=== PATIENT | male | born 1970 | race Caucasian/White ===

== ENCOUNTER 2019-03-15 18:06 | Emergency (ER) | payer MEDICAID ==
[~2019-03-15] VITALS: Ht 185.4 cm; Wt 136.1 kg
[2019-03-15] MEDS ORDERED: ALBU0.63 NEB (19:22)
[2019-03-15] MEDS ORDERED: ATORVASTATIN CA80 MG PO (19:22)
[2019-03-15] MEDS ORDERED: CARV25TA2 PO (19:22)
[2019-03-15] MEDS ORDERED: GABA300C18 PO (19:23)
[2019-03-15] MEDS ORDERED: DULO30CA2 PO (19:23)
[2019-03-15] MEDS ORDERED: PRAZ2CAP2 PO (19:24)
[2019-03-15] MEDS ORDERED: PRAZ5CAP2 PO (19:24)
[2019-03-15] MEDS ORDERED: LIDO30CR TP (19:24)
[2019-03-15] MEDS ORDERED: HYDR50CA2 PO (19:24)
[2019-03-15] MEDS ORDERED: ALBU2.5V8 INH (19:25)
[2019-03-15] MEDS ORDERED: BUDE10.2 IH (19:26)
[2019-03-15 19:35] LABS: BASO # 0.1 x10^3/uL (0.0-0.2); BASO % 1 % (0-3); EOS # 0.4 x10^3/uL (0.0-0.7); EOS % 4 % (0-3); HEMATOCRIT 56.3 % (39.0-53.0); HEMOGLOBIN 19.7 g/dL (13.0-17.5); LYMPH # 2.5 x10^3/uL (1.0-4.8); LYMPH % 24 % (24-48); MEAN CORPUSCULAR HEMOGLOBIN 32 pg (25-35); MEAN CORPUSCULAR HGB CONC 35 g/dL (31-37); MEAN CORPUSCULAR VOLUME 92 fL (79-100); MONO # 0.5 x10^3/uL (0.0-1.1); MONO % 5 % (0-9); NEUT # 6.8 x10^3/uL (1.8-7.7); NEUT % 66 % (31-73); PLATELET COUNT 244 x10^3/uL (140-400); RED BLOOD COUNT 6.12 x10^6/uL (4.30-5.70); RED CELL DISTRIBUTION WIDTH 13.4 % (11.5-14.5); WHITE BLOOD COUNT 10.3 x10^3/uL (4.0-11.0)
[2019-03-15 19:38] LABS: CALCIUM 9.4 mg/dL (8.5-10.1); CREATININE 1.1 mg/dL (0.7-1.3); GFR 71.4; POTASSIUM 3.5 mmol/L (3.5-5.1)
[2019-03-15 19:44] LABS: ALBUMIN 3.8 g/dL (3.4-5.0); MAGNESIUM 2.1 mg/dL (1.8-2.4); TOTAL BILIRUBIN 0.7 mg/dL (0.2-1.0); TOTAL PROTEIN 7.7 g/dL (6.4-8.2)
[2019-03-15 19:47] VITALS: BP 155/75
[2019-03-15] MEDS ORDERED: IPRATRPIUM/ALBUTEROL 0.5/2.5MG 3 ML NEBU. NEB ONE (20:00)
[2019-03-15] MEDS ORDERED: DEXAMETHASONE SOD PHOS 20 MG/5 ML VIAL. IV ONE (20:00)
--- NOTE | 2019-03-15 20:16 | PHYS DOC ---
Past Medical History Past Medical History: Anxiety, COPD, Depression, Hypertension, Other Additional Past Medical Histor: sleep apnea,ptsd, Past Surgical History: No Surgical History Smoking: Cigarettes, Less than 1pk/day Alcohol Use: None Drug Use: None Adult General Chief Complaint Chief Complaint: SHORTNESS OF BREATH HPI HPI Patient is a 48yo M w/ PMH significant for COPD and HTN presents w/ shortness of breath of 3 days duration that has progressively worsened without improvement after using at home medications (Symbicort, albuterol, and nebulizer as prescribed). Productive cough of white sputum, no hemoptysis. Denies CP. Reports KENT, fever, diaphoresis, sinus pressure. Reports girlfriend was diagnosed w/ pneumonia on Thursday; no other sick contacts. Review of Systems Review of Systems Constitutional: Reports fever, diaphoresis. Denies chills. Eyes: Denies redness, eye pain, or blurry vision HENT: Reports mild nasal congestion w/o rhinorrhea. Denies sore throat. Respiratory: Reports shortness of breath w/ productive cough of white sputum Cardiovascular: Denies chest pain or palpitations GI: Reports nausea w/ 1x vomiting w/o hematemesis. Denies abdominal pain, diarrhea, constipation, or hematochezia. : Denies dysuria or hematuria Musculoskeletal: Reports LBP secondary to L5-S1 DDD. Denies joint pain. Integument: Denies rash or skin lesions Neurologic: Reports KENT and dizziness. Denies focal weakness or sensory changes Complete systems were reviewed and found to be within normal limits, except as documented in this note. Current Medications Current Medications Current Medications Medications (Trade) Dose Ordered Sig/Meggan Start Time Stop Time Status Last Admin Dose Admin Acetaminophen (Tylenol) 500 mg 1X ONCE 03/15/19 21:00 03/15/19 21:00 DC 03/15/19 20:33 500 MG Albuterol/ Ipratropium (Duoneb) 3 ml 1X ONCE 03/15/19 20:00 03/15/19 20:01 DC Dexamethasone Sodium Phosphate (Decadron) 10 mg 1X ONCE 03/15/19 20:00 03/15/19 20:01 DC 03/15/19 19:30 10 MG Allergies Allergies Allergies Coded Allergies Type Severity Reaction Last Updated Verified aspirin Allergy Unknown "stomach in knots" 03/15/19 Yes Physical Exam Physical Exam Constitutional: conversational w/o staccato speech. Overweight. Well developed, well nourished, mild acute distress, non-toxic appearance HENT: Normocephalic, atraumatic, oropharynx moist, no cervical or supraclavicular LAD. Eyes: PERRL, EOMI, conjunctiva normal, no discharge Neck: Normal range of motion, no tenderness, supple Cardiovascular: Heart RRR w/o gallops, rubs, or murmurs. UE radial pulses intact 2/4 b/l. Lungs & Thorax: CTAB w/ wheezing throughout Abdomen: soft, non-tender, non-distended, no ecchymosis Skin: Warm, dry, no erythema, no rash Back: LBP tenderness, no ecchymosis Extremities: No tenderness, ROM intact, no edema Neurologic: Alert and oriented X 3, normal motor function, normal sensory function, no focal deficits noted Psychologic: Affect normal, judgement normal, mood normal Current Patient Data Vital Signs Vital Signs Date Time Temp Pulse Resp B/P (MAP) Pulse Ox O2 Delivery O2 Flow Rate FiO2 03/15/19 19:24 98 Room Air 03/15/19 19:16 98.2 76 18 176/81 (112) 98.2 Lab Values Laboratory Tests Test 03/15/19 19:20 White Blood Count 10.3 x10^3/uL (4.0-11.0) Red Blood Count 6.12 x10^6/uL (4.30-5.70) H Hemoglobin 19.7 g/dL (13.0-17.5) H Hematocrit 56.3 % (39.0-53.0) H Mean Corpuscular Volume 92 fL (79-100) Mean Corpuscular Hemoglobin 32 pg (25-35) Mean Corpuscular Hemoglobin Concent 35 g/dL (31-37) Red Cell Distribution Width 13.4 % (11.5-14.5) Platelet Count 244 x10^3/uL (140-400) Neutrophils (%) (Auto) 66 % (31-73) Lymphocytes (%) (Auto) 24 % (24-48) Monocytes (%) (Auto) 5 % (0-9) Eosinophils (%) (Auto) 4 % (0-3) H Basophils (%) (Auto) 1 % (0-3) Neutrophils # (Auto) 6.8 x10^3/uL (1.8-7.7) Lymphocytes # (Auto) 2.5 x10^3/uL (1.0-4.8) Monocytes # (Auto) 0.5 x10^3/uL (0.0-1.1) Eosinophils # (Auto) 0.4 x10^3/uL (0.0-0.7) Basophils # (Auto) 0.1 x10^3/uL (0.0-0.2) Sodium Level 144 mmol/L (136-145) Potassium Level 3.5 mmol/L (3.5-5.1) Chloride Level 106 mmol/L (98-107) Carbon Dioxide Level 28 mmol/L (21-32) Anion Gap 10 (6-14) Blood Urea Nitrogen 17 mg/dL (8-26) Creatinine 1.1 mg/dL (0.7-1.3) Estimated GFR (Cockcroft-Gault) 71.4 BUN/Creatinine Ratio 15 (6-20) Glucose Level 237 mg/dL (70-99) H Calcium Level 9.4 mg/dL (8.5-10.1) Magnesium Level 2.1 mg/dL (1.8-2.4) Total Bilirubin 0.7 mg/dL (0.2-1.0) Aspartate Amino Transferase (AST) 19 U/L (15-37) Alanine Aminotransferase (ALT) 48 U/L (16-63) Alkaline Phosphatase 94 U/L (46-116) Creatine Kinase 154 U/L (39-308) Creatine Kinase MB (Mass) 2.1 ng/mL (0.0-3.6) Creatine Kinase MB Relative Index 1.4 % (0-4) Troponin I Quantitative < 0.017 ng/mL (0.000-0.055) [id number]-[id number]-Type Natriuretic Peptide 24 pg/mL (0-124) Total Protein 7.7 g/dL (6.4-8.2) Albumin 3.8 g/dL (3.4-5.0) Albumin/Globulin Ratio 1.0 (1.0-1.7) Laboratory Tests 03/15/19 19:20 Laboratory Tests 03/15/19 19:20 EKG EKG EKG obtained @ 19:26. Read @ 19:30. Sinus rhythm w/ no ST-elevation changes visualized.[] Radiology/Procedures Radiology/Procedures Preliminary review by ED physician. Mild RLL atelectasis, no other acute process noted. No pneumonia visualized.[] Course & Med Decision Making Course & Med Decision Making Pertinent Labs and Imaging studies reviewed. (See chart for details) Patient presented with shortness of breath. Duoneb breathing treatment provided and patient noted improved breathing. Wheezing heard throughout pre- and post- treatment. CXR revealed no pneumonia. Patient stable for discharge with outpatient follow-up with PCP. Discussed findings and plan with patient and family, who acknowledge understanding and agreement. [] Dragon Disclaimer Dragon Disclaimer This electronic medical record was generated, in whole or in part, using a voice recognition dictation system. Departure Departure Impression: Primary Impression: Bronchitis Disposition: HOME, SELF-CARE Condition: IMPROVED Referrals: UNKNOWN PCP NAME (PCP) Patient Instructions: Acute Bronchitis, [id number] Scripts Prednisone (PREDNISONE) 20 Mg Tablet 2 TAB PO DAILY, #8 TAB Start this medication tomorrow, Thursday, 03/16. Prov: JOSIAH IVY DO 03/15/19 JOSIAH IVY DO Mar 15, 2019 20:16
[2019-03-15] MEDS ORDERED: PRED20TA PO (20:36)
--- NOTE | 2019-03-15 20:47 | RAD ---
Exam: Chest 2 views INDICATION: Wheezing TECHNIQUE: Frontal and lateral views of the chest Comparisons: None FINDINGS: The cardiomediastinal silhouette and pulmonary vessels are within normal limits. Patchy airspace disease in the left lower lung. No pleural effusion. IMPRESSION: Patchy airspace disease in the left lower lung may represent developing consolidation versus atelectasis. Electronically signed by: Clive Thomas MD (03/15/2019 8:44 PM) [facility]
[2019-03-15] MEDS ORDERED: ACETAMINOPHEN 500 MG TABLET PO ONE (21:00)
--- NOTE | 2019-03-16 07:05 | EKG ---
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
== END 2019-03-15 20:59 | disposition home or self-care (01) ==
LOC: ER 18:06
DX: J44.9 Chronic obstructive pulmonary disease, unspecified (principal); J98.11 Atelectasis; I10 Essential (primary) hypertension; F43.10 Post-traumatic stress disorder, unspecified; F17.210 Nicotine dependence, cigarettes, uncomplicated; Z88.6 Allergy status to analgesic agent
CPT/HCPCS: 36415; 71046; 80053; 82553; 83735; 83880; 84484; 85025; 93005; 94640; 96374; 99285; J1100; 99284-25

== ENCOUNTER 2019-04-16 01:17 | Emergency (ER) | payer MEDICAID ==
[~2019-04-16] VITALS: Ht 185.4 cm; Wt 136.1 kg
[~2019-04-16 01:17] MED LIST: ALBU0.63 NEB; ALBU2.5V8 INH; ATORVASTATIN CA80 MG PO; BUDE10.2 IH; CARV25TA2 PO; DULO30CA2 PO; GABA300C18 PO; HYDR50CA2 PO; LIDO30CR TP; PRAZ2CAP2 PO; PRAZ5CAP2 PO; PRED20TA PO
[2019-04-16 01:32] VITALS: BP 107/80
[2019-04-16] MEDS ORDERED: METH4TAB2 PO (02:01)
[2019-04-16] MEDS ORDERED: MUPI22OI2 TP (02:01)
--- NOTE | 2019-04-16 02:01 | PHYS DOC ---
Past Medical History Past Medical History: Anxiety, COPD, Depression, Hypertension, Other Additional Past Medical Histor: sleep apnea,ptsd, Past Surgical History: No Surgical History Alcohol Use: None Drug Use: None Adult General Chief Complaint Chief Complaint: ITCHING HPI HPI Patient is a 48-year-old male who presents with complaint of diffuse itching and rash. He states that the itching and rash is worse around his zhou. He denies any fever, chest pain or shortness breath. Patient states that symptoms have been present for the last few days. He states that he thinks that it may be caused by changing soaps.[] Review of Systems Review of Systems Constitutional: Denies fever or chills [] Respiratory: Denies cough or shortness of breath [] Cardiovascular: No additional information not addressed in HPI [] Integument: Positive rash and pruritus[] Allergies Allergies Allergies Coded Allergies Type Severity Reaction Last Updated Verified aspirin Allergy Unknown "stomach in knots" 03/15/19 Yes Physical Exam Physical Exam Constitutional: Well developed, well nourished, no acute distress, non-toxic appearance. [] Neck: Normal range of motion, no tenderness, supple, no stridor. [] Cardiovascular:Heart rate regular rhythm, no murmur [] Lungs & Thorax: Bilateral breath sounds clear to auscultation [] Skin: There is a diffuse erythematous rash with some excoriations, especially around the chin where zhou is present. [] Current Patient Data Vital Signs Vital Signs Date Time Temp Pulse Resp B/P (MAP) Pulse Ox O2 Delivery O2 Flow Rate FiO2 04/16/19 01:32 97.9 71 18 107/80 (89) 96 Room Air 97.9 EKG EKG [] Radiology/Procedures Radiology/Procedures [] Course & Med Decision Making Course & Med Decision Making Pertinent Labs and Imaging studies reviewed. (See chart for details) [] Dragon Disclaimer Dragon Disclaimer This electronic medical record was generated, in whole or in part, using a voice recognition dictation system. Departure Departure Impression: Primary Impression: Contact dermatitis Disposition: 01 HOME, SELF-CARE Condition: STABLE Referrals: UNKNOWN PCP NAME (PCP) Patient Instructions: Contact Dermatitis, Rash Scripts Mupirocin (MUPIROCIN OINTMENT) 22 Gm Oint...g. 1 LELIA TP BID for WOUND CARE, #1 TUBE Prov: ALMA DELIA LERMA Jr. DO 04/16/19 Methylprednisolone (MEDROL) 4 Mg Tab.ds.pk 1 PKG PO UD, #1 PKG Prov: ALMA DELIA LERMA Jr. DO 04/16/19 Problem Qualifiers Primary Impression: Contact dermatitis Contact dermatitis type: allergic Contact dermatitis trigger: unspecified trigger Qualified Codes: L23.9 - Allergic contact dermatitis, unspecified cause ALMA DELIA LERMA Jr. DO Apr 16, 2019 02:01
[2019-04-16] MEDS ORDERED: predniSONE 10 MG TABLET PO ONE (02:30)
== END 2019-04-16 02:15 | disposition home or self-care (01) ==
LOC: ER 01:17
DX: L23.9 Allergic contact dermatitis, unspecified cause (principal); I10 Essential (primary) hypertension; J44.9 Chronic obstructive pulmonary disease, unspecified; Z88.6 Allergy status to analgesic agent
CPT/HCPCS: 99283; J7512

== ENCOUNTER 2020-06-13 19:06 | Emergency (ER) | payer SELFPAY ==
[~2020-06-13] VITALS: Ht 185.4 cm; Wt 145.0 kg
[~2020-06-13 19:06] MED LIST changes: +METH4TAB2 PO; +MUPI22OI2 TP
[2020-06-13] MEDS ORDERED: AZIT250T PO (20:30)
[2020-06-13] MEDS ORDERED: ACETAMINOPHEN 325 MG TABLET. PO ONE (20:30)
[2020-06-13] MEDS ORDERED: DEXAMETHASONE SOD PHOS 4 MG/ML VIAL PO ONE (20:30)
[2020-06-13] MEDS ORDERED: TRAM-48 PO (20:30)
--- NOTE | 2020-06-13 20:30 | PHYS DOC ---
Past Medical History Past Medical History: Anxiety, COPD, Depression, Hypertension, Other Additional Past Medical Histor: sleep apnea,ptsd, Past Surgical History: No Surgical History Smoking Status: Current Every Day Smoker Alcohol Use: None Drug Use: None General Adult EDM: Chief Complaint: HEADACHE HPI: HPI: 49-year-old male presents with a chief complaint of migraine headache associated with sore throat. Patient states migraine headache started yesterday. Is located in the frontal sinus region. Patient states he sleeps with a CPAP and this morning he woke up with a sore throat. Patient denies any fevers or chills. He denies any cough or shortness of breath. On exam patient is nontoxic appearing. His vital signs are stable. Oxygen saturation 100% on room air. Patient states he is not concerned about having Covid. Patient declines Covid testing. Plan to treat patient headache with Tylenol. Will treat patient with Decadron and prescribed Zithromax for sinus upper respiratory pharyngitis symptoms. Review of Systems: Review of Systems: Constitutional: Denies fever or chills. [] Eyes: Denies change in visual acuity. [] HENT: Positive nasal congestion or sore throat. [] Respiratory: Denies cough or shortness of breath. [] Cardiovascular: Denies chest pain or edema. [] GI: Denies abdominal pain, nausea, vomiting, bloody stools or diarrhea. [] : Denies dysuria. [] Musculoskeletal: Denies back pain or joint pain. [] Integument: Denies rash. [] Neurologic: Positive headache, no focal weakness or sensory changes. [] Endocrine: Denies polyuria or polydipsia. [] Lymphatic: Denies swollen glands. [] Psychiatric: Denies depression or anxiety. [] Heart Score: Risk Factors: Risk Factors: DM, Current or recent (<one month) smoker, HTN, HLP, family history of CAD, obesity. Risk Scores: Score 0 - 3: 2.5% MACE over next 6 weeks - Discharge Home Score 4 - 6: 20.3% MACE over next 6 weeks - Admit for Clinical Observation Score 7 - 10: 72.7% MACE over next 6 weeks - Early Invasive Strategies Allergies: Allergies: Allergies Coded Allergies Type Severity Reaction Last Updated Verified aspirin Allergy Unknown "stomach in knots" 03/15/19 Yes Physical Exam: PE: Constitutional: Well developed, well nourished, no acute distress, non-toxic appearance. [] HENT: Normocephalic, atraumatic, bilateral external ears normal, oropharynx moist, no oral exudates, nose normal. [] Eyes: PERRLA, EOMI, conjunctiva normal, no discharge. [] Neck: Normal range of motion, no tenderness, supple, no stridor. [] Cardiovascular:Heart rate regular rhythm, no murmur [] Lungs & Thorax: Bilateral breath sounds clear to auscultation [] Abdomen: Bowel sounds normal, soft, no tenderness, no masses, no pulsatile masses. [] Skin: Warm, dry, no erythema, no rash. [] Back: No tenderness, no CVA tenderness. [] Extremities: No tenderness, no cyanosis, no clubbing, ROM intact, no edema. [] Neurologic: Alert and oriented X 3, normal motor function, normal sensory function, no focal deficits noted. [] Psychologic: Affect normal, judgement normal, mood normal. [] Current Patient Data: Vital Signs: Vital Signs Date Time Temp Pulse Resp B/P (MAP) Pulse Ox O2 Delivery O2 Flow Rate FiO2 06/13/20 19:17 98.7 70 18 180/86 (117) 98 Room Air 98.7 EKG: EKG: [] Radiology/Procedures: Radiology/Procedures: [] Course & Med Decision Making: Course & Med Decision Making Pertinent Labs and Imaging studies reviewed. (See chart for details) [] Dragon Disclaimer: Dragon Disclaimer: This electronic medical record was generated, in whole or in part, using a voice recognition dictation system. Departure Departure Impression: Primary Impression: Sinusitis Additional Impressions: Pharyngitis Headache Disposition: HOME SELF CARE/HOMELESS Condition: STABLE Referrals: NO PCP (PCP) Patient Instructions: Sinusitis, Viral and Bacterial Pharyngitis Scripts Tramadol Hcl (ULTRAM) 50 Mg Tablet 50 MG PO Q6HRS PRN for PAIN for 10 Days, #40 TAB 0 Refills Prov: JESSE LEBRON DO 06/13/20 Azithromycin (ZITHROMAX) 250 Mg Tablet 1 PKG PO UD, #6 TAB Prov: JESSE LEBRON DO 06/13/20 JESSE LEBRON DO Jun 13, 2020 20:30
[2020-06-13 20:34] VITALS: BP 148/86
== END 2020-06-13 20:37 | disposition home or self-care (01) ==
LOC: ER 19:06
DX: J32.9 Chronic sinusitis, unspecified (principal); J02.9 Acute pharyngitis, unspecified; G43.909 Migraine, unspecified, not intractable, without status migrainosus; J44.9 Chronic obstructive pulmonary disease, unspecified; I10 Essential (primary) hypertension; F32.9 Major depressive disorder, single episode, unspecified; F41.9 Anxiety disorder, unspecified; F43.10 Post-traumatic stress disorder, unspecified; F17.200 Nicotine dependence, unspecified, uncomplicated; Z88.6 Allergy status to analgesic agent
CPT/HCPCS: 99283; J1100

== ENCOUNTER 2021-08-22 21:35 | Emergency (ER) | payer SELFPAY ==
[~2021-08-22] VITALS: Ht 190.5 cm; Wt 143.2 kg
[~2021-08-22 21:35] MED LIST changes: +AZIT250T PO; -LIDO30CR TP; +LIDO30CR2 TP; +TRAM-48 PO
[2021-08-22 22:44] LABS: BASO # 0.2 x10^3/uL (0.0-0.2); BASO % 1 % (0-3); EOS # 0.4 x10^3/uL (0.0-0.7); EOS % 2 % (0-3); HEMATOCRIT 54.4 % (39.0-53.0); HEMOGLOBIN 19.5 g/dL (13.0-17.5); LYMPH # 2.9 x10^3/uL (1.0-4.8); LYMPH % 17 % (24-48); MEAN CORPUSCULAR HEMOGLOBIN 32 pg (25-35); MEAN CORPUSCULAR HGB CONC 36 g/dL (31-37); MEAN CORPUSCULAR VOLUME 88 fL (79-100); MONO # 1.5 x10^3/uL (0.0-1.1); MONO % 9 % (0-9); NEUT # 11.8 x10^3/uL (1.8-7.7); NEUT % 70 % (31-73); PLATELET COUNT 279 x10^3/uL (140-400); RED BLOOD COUNT 6.17 x10^6/uL (4.30-5.70); RED CELL DISTRIBUTION WIDTH 13.9 % (11.5-14.5); WHITE BLOOD COUNT 16.8 x10^3/uL (4.0-11.0)
[2021-08-22 22:56] LABS: CALCIUM 8.9 mg/dL (8.5-10.1); CREATININE 0.9 mg/dL (0.7-1.3); GFR 89.3; POTASSIUM 3.9 mmol/L (3.5-5.1)
[2021-08-22 23:00] LABS: BILIRUBIN,URINE NEGATIVE (NEG); CLARITY,URINE CLEAR; COLOR,URINE YELLOW; NITRITE,URINE NEGATIVE (NEG); PH,URINE 5.5 (<5.0-8.0); PROTEIN,URINE 30 mg/dL (NEG-TRACE); UROBILINOGEN,URINE 0.2 mg/dL (0.2 mg/dL)
[2021-08-22 23:02] LABS: ALBUMIN 3.6 g/dL (3.4-5.0); TOTAL BILIRUBIN 0.4 mg/dL (0.2-1.0); TOTAL PROTEIN 7.1 g/dL (6.4-8.2)
--- NOTE | 2021-08-22 23:14 | PHYS DOC ---
Past Medical History Past Medical History: Anxiety, COPD, Depression, Hypertension, Other Additional Past Medical Histor: sleep apnea,ptsd, Past Surgical History: No Surgical History Smoking Status: Current Every Day Smoker Alcohol Use: None Drug Use: None General Adult EDM: Chief Complaint: SHORTNESS OF BREATH HPI: HPI: 50-year-old male past medical history COPD/current tobacco use, hypertension, hyperlipidemia and BPH, presents to the ED with complaints of shortness of b reath when lying flat, nasal congestion, headache and fatigue. States he ran out of his albuterol inhaler. Not vaccinated for Covid. Unsure if he has been in contact with anyone who is positive for Covid. States this feels similar to his copd. Reports associated nausea/vomiting yesterday but has tolerated oral intake since then. Review of Systems: Review of Systems: Constitutional: Denies fever or chills. [] Eyes: Denies change in visual acuity. [] HENT: Denies rhinorrhea or sore throat. [] Respiratory: Denies hemoptysis or increased work of breathing Cardiovascular: Denies chest pain or edema. [] GI: Denies abdominal pain, bloody stools or diarrhea. [] : Denies dysuria or hematuria Musculoskeletal: Denies back pain or joint pain. [] Integument: Denies rash or diaphoresis Neurologic: Denies neck stiffness, focal weakness or sensory changes. [] Endocrine: Denies polyuria or polydipsia. [] Lymphatic: Denies swollen glands. [] Psychiatric: Denies depression or anxiety. [] Heart Score: C/O Chest Pain: No Risk Factors: Risk Factors: DM, Current or recent (<one month) smoker, HTN, HLP, family history of CAD, obesity. Risk Scores: Score 0 - 3: 2.5% MACE over next 6 weeks - Discharge Home Score 4 - 6: 20.3% MACE over next 6 weeks - Admit for Clinical Observation Score 7 - 10: 72.7% MACE over next 6 weeks - Early Invasive Strategies Allergies: Allergies: Allergies Coded Allergies Type Severity Reaction Last Updated Verified aspirin Allergy Unknown "stomach in knots" 03/15/19 Yes Physical Exam: PE: Constitutional: Well developed, well nourished, no acute distress, non-toxic appearance. HENT: Normocephalic, atraumatic, Eyes: EOMI, conjunctiva normal, no discharge. Neck: Normal range of motion, supple, Cardiovascular: S1/2 present, no murmurs Lungs & Thorax: Speaking in full sentences, bilateral equal chest rise, no tachypnea or increased work of breathing Abdomen: soft, no tenderness, obese Skin: Warm, dry, no erythema, no rash. [] Extremities: No tenderness, no cyanosis, Neurologic: Alert and oriented X 3, normal motor function, normal sensory function, no focal deficits noted. [] Psychologic: Affect normal, judgement normal, mood normal. [] Current Patient Data: Labs: Laboratory Tests Test 08/22/21 22:30 White Blood Count 16.8 x10^3/uL (4.0-11.0) H Red Blood Count 6.17 x10^6/uL (4.30-5.70) H Hemoglobin 19.5 g/dL (13.0-17.5) H Hematocrit 54.4 % (39.0-53.0) H Mean Corpuscular Volume 88 fL (79-100) Mean Corpuscular Hemoglobin 32 pg (25-35) Mean Corpuscular Hemoglobin Concent 36 g/dL (31-37) Red Cell Distribution Width 13.9 % (11.5-14.5) Platelet Count 279 x10^3/uL (140-400) Neutrophils (%) (Auto) 70 % (31-73) Lymphocytes (%) (Auto) 17 % (24-48) L Monocytes (%) (Auto) 9 % (0-9) Eosinophils (%) (Auto) 2 % (0-3) Basophils (%) (Auto) 1 % (0-3) Neutrophils # (Auto) 11.8 x10^3/uL (1.8-7.7) H Lymphocytes # (Auto) 2.9 x10^3/uL (1.0-4.8) Monocytes # (Auto) 1.5 x10^3/uL (0.0-1.1) H Eosinophils # (Auto) 0.4 x10^3/uL (0.0-0.7) Basophils # (Auto) 0.2 x10^3/uL (0.0-0.2) Sodium Level 139 mmol/L (136-145) Potassium Level 3.9 mmol/L (3.5-5.1) Chloride Level 103 mmol/L (98-107) Carbon Dioxide Level 27 mmol/L (21-32) Anion Gap 9 (6-14) Blood Urea Nitrogen 16 mg/dL (8-26) Creatinine 0.9 mg/dL (0.7-1.3) Estimated GFR (Cockcroft-Gault) 89.3 BUN/Creatinine Ratio 18 (6-20) Glucose Level 88 mg/dL (70-99) Calcium Level 8.9 mg/dL (8.5-10.1) Total Bilirubin 0.4 mg/dL (0.2-1.0) Aspartate Amino Transferase (AST) 14 U/L (15-37) L Alanine Aminotransferase (ALT) 36 U/L (16-63) Alkaline Phosphatase 109 U/L (46-116) Creatine Kinase 128 U/L (39-308) Troponin I High Sensitivity 13 ng/L (4-75) JX-Jdd-D-Type Natriuretic Peptide 29 pg/mL (0-124) Total Protein 7.1 g/dL (6.4-8.2) Albumin 3.6 g/dL (3.4-5.0) Albumin/Globulin Ratio 1.0 (1.0-1.7) Laboratory Tests 08/22/21 22:30 Laboratory Tests 08/22/21 22:30 Vital Signs: Vital Signs Date Time Temp Pulse Resp B/P (MAP) Pulse Ox O2 Delivery O2 Flow Rate FiO2 08/22/21 22:57 72 18 175/96 (122) 98 Room Air 08/22/21 22:01 98.4 98.4 EKG: EKG: Irregular rhythm 71 bpm, no axis deviation, normal intervals, no T wave inversion, no ST elevation or ST depression Radiology/Procedures: Radiology/Procedures: IMAGING REPORT Signed PATIENT: JEANNINE HOLLIDAY ACCOUNT: [id number] : 1970 LOCATION: ER AGE: 50 SEX: M EXAM STATUS: REG ER ORD. PHYSICIAN: BETITO ZAMAN DO REASON: soa not ready 10:30 10:45 PROCEDURE: PORTABLE CHEST 1V EXAM: AP View of the chest DATE: 08/22/2021 11:11 PM INDICATION: Reason: soa not ready 10:30 10:45 / Spl. Instructions: / History: COMPARISON: 03/15/2019 FINDINGS: Mild cardiomegaly. Mediastinal and hilar contours are stable. Minimal patchy opacities peripheral right lower lung and left midlung. No pleural effusion or pneumothorax. IMPRESSION: Minimal patchy opacities bilaterally, possibly consolidative process such as pneumonia.. Electronically signed by: Suhail Hernandez MD (08/22/2021 11:43 PM) [facility] DICTATED and SIGNED BY: SUHAIL HERNANDEZ MD DATE: 08/22/21 [id number] 0 Course & Med Decision Making: Course & Med Decision Making Pertinent Labs and Imaging studies reviewed. (See chart for details) COVID-19 CRITERIA: The patient was evaluated during the global COVID-19 pandemic, and that diagnosis was suspected/considered upon their initial pres entation. Their evaluation, treatment and testing was consistent with current guidelines for patients who present with complaints or symptoms that may be related to COVID-19. Concern for URI sxs, rapid covid, flu negative, cxr concerning for pneumonia. Will also treat copd. PE considered, unlikely given vital signs, physical exam and history. Patient is very well-appearing, protecting his airway and hemodynamically stable. Will discharge home with strict ED return precautions were given for increased work of breathing, chest pain, hemoptysis or neurologic deficits. Encouraged urgent outpatient follow-up with PMD for routine care and pulmonology for definitive management of COPD. Life-threatening processes were considered but are low suspicion at this time, given history, physical exam and ED workup. Pt was educated on all prescription medications and adverse effects. All patient's questions were answered and pt was stable at time of discharge. Life/limb-threatening differential includes but is not limited to, ACS, dysrhythmia, pneumothorax or hemothorax, pulmonary embolus, pneumonia, bronchoconstriction, pulmonary edema, angioedema, epiglottitis, tracheitis, Nabil's angina, RPA/HEALTH CARE FACILITY ADMINISTRATOR, anaphylaxis, angioedema, cardiac tamponade or murmurs, pericarditis, myocarditis, poisoning or toxicity, sepsis or autoimmune/neurologic disease. I have spoken with the patient and/or caregivers. I explained the patient's condition, diagnoses and treatment plan based on the information available to me at this time. I have answered the patient and/or caregiver's questions and addressed any concerns. The patient and/or caregivers have a good understanding of patient's diagnosis, condition and treatment plan as can be expected at this point. Vital signs have been stable. Patient's condition is stable and appropriate for discharge from the emergency department. Patient will pursue further outpatient evaluation with primary care physician or other designated or consulting physician as outlined in the discharge instructions. The patient and/or caregivers are agreeable to this plan of care and follow-up instructions have been explained in detail. The patient and/or caregivers have received these instructions in written form and have expressed an understanding of the discharge instructions. The patient and/or caregivers are aware that any significant change of condition or worsening of symptoms should prompt immediate return to this or the closest emergency department or call to 911. Kontagent Disclaimer: Kontagent Disclaimer: This electronic medical record was generated, in whole or in part, using a voice recognition dictation system. Departure Departure Impression: Primary Impression: Pneumonia Additional Impressions: COPD (chronic obstructive pulmonary disease) Person under investigation for COVID-19 Disposition: HOME / SELF CARE / HOMELESS Condition: STABLE Referrals: NO PCP (PCP) Follow-up with your primary care physician in 24 to 48 hours OR FOLLOW UP WITH FAMILY MEDICINE: [address], [address] [place] [address] Patient Instructions: Chronic Obstructive Pulmonary Disease, Pneumonia, Adult Additional Instructions: Return to ED immediately if your oxygen level drops below 90% (purchase a pulse oximetry at a medical supply store), difficulties breathing including rapid breathing or increased work of breathing (skin sucking under ribs), chest pain or stroke-like symptoms (facial droop, speech changes, arm/leg weakness). FOLLOW UP WITH PULMONOLOGY: FOR DEFINITIVE MANAGEMENT of copd [facility] [address] [place] [address] EMERGENCY DEPARTMENT GENERAL DISCHARGE INSTRUCTIONS Thank you for coming to [facility] Emergency Department (ED) today and trusting us with you care. We trust that you had a positive experience in our Emergency Department. If you wish to speak to the department management, you may call the Director at [phone]. YOUR FOLLOW UP INSTRUCTIONS ARE FOLLOWS: 1. Do you have a private Doctor? If you do not have a private doctor, please ask for a resource list of physicians or clinics that may be able to assist you with follow up care. 2. The Emergency Physicain has interpreted your x-rays. The X-Ray specialist will also review them. If there is a change in the findings, you will be notified in 48 hours when at all possible. 3. A lab test or culture has been done, your results will be reviewed and you will be notified if you need a change in treatment. ADDITIONAL INSTRUCTIONS AND INFORMATION: 1. Your care today has been supervised by a physician who is specially trained in emergency care. Many problems require more than one evaluation for a complete diagnosis and treatment. We recommend that you schedule your follow up appointment as recommended to ensure complete treatment of you illness or injury. If you are unable to obtain follow up care and continue to have a problem, or if your condition worsens, we recommend that you return to the ED. 2. We are not able to safely determine your condition over the phone nor are we able to give sound medical advice over the phone. For these safety reasons, if you call for medical advice we will ask you to come to the ED for further evaluation. 3. If you have any questions regarding these discharge instructions please call the ED at [phone]. SAFETY INFORMATION: In the interest of safety, wellness, and injury prevention; we encourage you to wear your sealbelt, if you smoke; quite smoking, and we encourage family to use a protective helmet for bicycling and other sporting events that present an increased risk for head injury. IF YOUR SYMPTOMS WORSEN OR NEW SYMPTOMS DEVELOP, OR YOU HAVE CONCERNS ABOUT YOUR CONDITION; OR IF YOUR CONDITION WORSENS WHILE YOU ARE WAITING FOR YOUR FOLLOW UP APPOINTMENT; EITHER CONTACT YOUR PRIMARY CARE DOCTOR, THE PHYSICIAN WHOSE NAME AND NUMBER YOU WERE GIVEN, OR RETURN TO THE ED IMMEDIATELY. Scripts Albuterol Sulfate (VENTOLIN HFA INHALER) 18 Gm Hfa.aer.ad 2 PUFF INH QID for FOR ASTHMA, #1 INHALER 0 Refills Prov: BETITO ZAMAN DO 08/23/21 Prednisone (PREDNISONE) 20 Mg Tablet 1 TAB PO DAILY, #5 TAB Prov: BETITO ZAMAN DO 08/23/21 Azithromycin (ZITHROMAX) 250 Mg Tablet 1 PKG PO UD, #6 TAB Prov: BETITO ZAMAN DO 08/23/21 BETITO ZAMAN DO Aug 22, 2021 23:14
[2021-08-22 23:15] LABS: BACTERIA,URINE 0 /HPF (0-FEW); RBC,URINE 0 /HPF (0-2); WBC,URINE 0 /HPF (0-4)
[2021-08-22 23:27] LABS: INFLUENZA A PATIENT NEGATIVE (NEGATIVE); INFLUENZA B PATIENT NEGATIVE (NEGATIVE)
[2021-08-22] MEDS ORDERED: IPRATRPIUM/ALBUTEROL 0.5/2.5MG 3 ML NEBU. NEB ONE (23:45)
[2021-08-22] MEDS ORDERED: DEXAMETHASONE 4 MG TABLET PO ONE (23:45)
--- NOTE | 2021-08-22 23:45 | RAD ---
EXAM: AP View of the chest DATE: 08/22/2021 11:11 PM INDICATION: Reason: soa not ready 10:30 10:45 / Spl. Instructions: / History: COMPARISON: 03/15/2019 FINDINGS: Mild cardiomegaly. Mediastinal and hilar contours are stable. Minimal patchy opacities peripheral right lower lung and left midlung. No pleural effusion or pneumothorax. IMPRESSION: Minimal patchy opacities bilaterally, possibly consolidative process such as pneumonia.. Electronically signed by: Suhail Hernandez MD (08/22/2021 11:43 PM) ANGIE
[2021-08-23] MEDS ORDERED: ACETAMINOPHEN 325 MG TABLET. PO ONE (00:45)
[2021-08-23] MEDS ORDERED: VENTOLIN HFA18 GM INH (01:23)
[2021-08-23] MEDS ORDERED: AZIT250T PO (01:23)
[2021-08-23] MEDS ORDERED: PRED20TA PO (01:23)
[2021-08-23 01:30] VITALS: BP 161/92
--- NOTE | 2021-08-23 04:36 | EKG ---
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
== END 2021-08-23 01:51 | disposition home or self-care (01) ==
LOC: ER 21:35
DX: J18.9 Pneumonia, unspecified organism (principal); J44.9 Chronic obstructive pulmonary disease, unspecified; Z20.822 Contact with and (suspected) exposure to COVID-19; I10 Essential (primary) hypertension; Z72.0 Tobacco use; Z88.6 Allergy status to analgesic agent
CPT/HCPCS: 36415; 71045; 80053; 81001; 82550; 83880; 84484; 85025; 87426; 87804; 93005; 94640; 99285; U0003; U0005

== ENCOUNTER 2021-09-19 19:43 | Emergency (ER) | payer SELFPAY ==
[~2021-09-19] VITALS: Ht 185.4 cm; Wt 145.0 kg
[~2021-09-19 19:43] MED LIST changes: +VENTOLIN HFA18 GM INH
[2021-09-19 20:12] VITALS: BP 170/110
--- NOTE | 2021-09-19 20:38 | PHYS DOC ---
Past Medical History Past Medical History: Anxiety, COPD, Depression, Hypertension, Other Additional Past Medical Histor: sleep apnea,ptsd, Past Surgical History: No Surgical History Smoking Status: Current Every Day Smoker Alcohol Use: None Drug Use: None General Adult EDM: Chief Complaint: HEADACHE HPI: HPI: Patient is a 50-year-old male presenting for upper respiratory symptoms. States he has had the symptoms for past 3 days. Reports he has taken Tylenol and ibuprofen occasionally with mild improvement in symptoms, reports taking a B enadryl yesterday evening with significant improvement in symptoms. States he was here approximately 1 month ago and was diagnosed with pneumonia completing all antibiotics and steroids as prescribed. Reports he has otherwise been at baseline health but admits he has not been compliant with his home BiPAP/CPAP machine for sleep apnea. He is unvaccinated against COVID-19 and continues to smoke cigarettes daily. Today he reports mild frontal sinus pressure and associated headache, nasal congestion, left ear fullness, and sore throat. Denies fever, syncope, chills, chest pain, ripping or tearing sensation in chest, shortness of breath, cough, abdominal pain, changes in motor or sensory or neuro function Review of Systems: Review of Systems: Fourteen body systems of review of systems have been reviewed. See HPI for pertinent positives and negative responses, other stewart all other systems are negative, non-pertinent or non-contributory Heart Score: C/O Chest Pain: No Risk Factors: Risk Factors: DM, Current or recent (<one month) smoker, HTN, HLP, family history of CAD, obesity. Risk Scores: Score 0 - 3: 2.5% MACE over next 6 weeks - Discharge Home Score 4 - 6: 20.3% MACE over next 6 weeks - Admit for Clinical Observation Score 7 - 10: 72.7% MACE over next 6 weeks - Early Invasive Strategies Allergies: Allergies: Allergies Coded Allergies Type Severity Reaction Last Updated Verified aspirin Allergy Unknown "stomach in knots" 03/15/19 Yes Physical Exam: PE: General: Appears well, non toxic, poor overall hygiene, obese, and comfortable Skin: Warm, dry. Normal for ethnicity. HEENT: Atraumatic. PERRLA. Rhinorrhea and congestion. Nasal turbinates boggy b/l. Moist mucous membranes. Uvula midline. Maintaining secretions. No phonation changes. Neck: Trachea midline. Normal ROM. No stridor. No meningeal signs or nuchal rigidity Respiratory: Normal WOB. CTAB w/o w/r/r. No tachypnea. Cardiovascular: Regular rate and rhythm. Normal peripheral perfusion. Abdomen: Soft. Non tender. No distension. Back: Normal ROM. Musculoskeletal: No swelling or deformity. Neuro: Alert and oriented x 4. MAEE. Lymph: No cervical LAD. Psych: Normal affect and mood. Current Patient Data: Vital Signs: Vital Signs Date Time Temp Pulse Resp B/P (MAP) Pulse Ox O2 Delivery O2 Flow Rate FiO2 09/19/21 20:12 97.7 74 18 170/110 (130) 97 Room Air 97.7 EKG: EKG: [] Radiology/Procedures: Radiology/Procedures: [] Course & Med Decision Making: Course & Med Decision Making ABCs unremarkable besides slight hypertension and patient who is yet to take p.m. hypertensive meds History and physical exam nonconcerning for any emergent or surgical issues Discussed most likely diagnosis of viral syndrome. I recommended Covid and influenza testing but patient deferred. Also advised him to stop smoking cigarettes and utilize his BiPAP machine at night for DURAN As such, self quarantine per CDC guidelines and appropriate supportive care practices such as utilizing daily antihistamine in addition to Tylenol and/or NSAIDs for pain/fever control advised with close PCP follow-up when safe to do so Strict return precautions discussed prior to ER departure. All questions and concerns addressed prior to ER departure Wale Disclaimer: Wale Disclaimer: This electronic medical record was generated, in whole or in part, using a voice recognition dictation system. Departure Departure Impression: Primary Impression: Upper respiratory infection, acute Additional Impression: Headache Disposition: HOME / SELF CARE / HOMELESS Condition: STABLE Referrals: NO PCP (PCP) Additional Instructions: You were seen for headache, weakness, fatigue, and possible infection with COVID-19. Your physical exam was reassuring. We offered to test you for Covid and influenza but you deferred. As such, you need to quarantine yourself at home away from all other individuals, especially those who are elderly or have any other chronic health issues or an immunocompromised status. Alternate Tylenol and ibuprofen as needed for body aches and pain. If your test does come back positive you need to quarantine yourself for 10 days until symptom-free. You should make sure to drink plenty of fluids and get plenty of rest. You should return to the ED if you develop worsening cough, shortness of breath, chest pain, or any other new or concerning symptoms. DULCE LEONARDO DO Sep 19, 2021 20:38
== END 2021-09-19 20:54 | disposition home or self-care (01) ==
LOC: ER 19:43
DX: J06.9 Acute upper respiratory infection, unspecified (principal); R51.9 Headache, unspecified; I10 Essential (primary) hypertension; J44.9 Chronic obstructive pulmonary disease, unspecified; F17.200 Nicotine dependence, unspecified, uncomplicated; Z88.6 Allergy status to analgesic agent
CPT/HCPCS: 99282